=== PATIENT | female | born 2000 | race Caucasian/White ===

== ENCOUNTER 2022-02-08 18:07 | Emergency (ER) | payer OTHER, BC | END 2022-02-08 19:00 | disposition home or self-care (01) | LOC: LL.ED 18:07 | DX: S93.401A Sprain of unspecified ligament of right ankle, initial encounter (principal); W01.0XXA Fall on same level from slipping, tripping and stumbling without subsequent striking against object, initial encounter; Y99.0 Civilian activity done for income or pay | CPT/HCPCS: 73610-RT; 99283; 99283-25 ==

== ENCOUNTER 2022-04-23 17:08 | Emergency (ER) | payer BC, OTHER | END 2022-04-23 17:27 | disposition home or self-care (01) | LOC: LL.ED 17:08 | DX: U07.1 COVID-19 (principal) | CPT/HCPCS: 99283; U0002 ==